=== PATIENT | female | born 1935 | race Caucasian/White ===

== ENCOUNTER 2017-03-06 21:29 | Emergency (ER) | payer MEDICARE ==
[~2017-03-06] VITALS: Ht 162.6 cm; Wt 80.0 kg
[~2017-03-06 21:29] MED LIST: ASPI81TA82 PO; ATOR10 PO; COZA100T PO; LACT PO; OMEP20CA5 PO
[2017-03-06 21:32] VITALS: BP 174/74; PULSE 92; RESP 22; TEMP 99; O2SAT 97
[2017-03-06] MEDS ORDERED: LISI10TA3 PO (21:39)
[2017-03-06] MEDS ORDERED: ATOR10TA15 PO (21:39)
[2017-03-06] MEDS ORDERED: OMEP20TA93 PO (21:39)
[2017-03-06] MEDS ORDERED: BETH10TA2 PO (21:39)
--- NOTE | 2017-03-06 21:55 | PD ---
HPI Chief Complaint: Respiratory Symptoms Time Seen by Provider: 21:45 Travel History International Travel<30 days: Yes Contact w/Intl Traveler<30days: Yes Name of Country Traveled to: [place] Traveled to known affect area: No History of Present Illness HPI Patient is a 81-year-old female who just got off of a two-week cruise , she was treated for diarrhea . she reports there was blood in the diarrhea . now she is here complaining of respiratory cough shortness of breath wheezing . She just got off the cruise this day . She took mucinex but it did not relieve her symptoms. Pt Comes to [place] with all her papers from cruise. Pt also reports edema in her ankles bilateral , SHe reports she takes lasix intermittently especially when she goes on cruises. Pt is in no apparent pain nor resp distress. PFSH Past Medical History Blood Disorders: No Cancer: No Cardiovascular Problems: Yes (HYPERCHOLESTEROLEMIA) High Cholesterol: Yes Diabetes: No Diminished Hearing: No Endocrine: No Gastrointestinal Disorders: Yes (GERD) Glaucoma: No Genitourinary: No Hepatitis: No Hiatal Hernia: Yes Hypertension: Yes Immune Disorder: No Implanted Vascular Access Dvce: Yes Medical other: No Musculoskeletal: No Neurologic: No Psychiatric: No Reproductive: No Respiratory: No Thyroid Disease: No PNEUMOCCOCAL Vaccine (Year): 2002 Menopausal: Yes Past Surgical History Abdominal Surgery: Yes (APPENDECTOMY (CHILDHOOD), HYATIAL HERNIA REPAIR) Appendectomy: Yes Body Medical Devices: PLATE IN LEFT LEG FROM FEMUR REPAIR Oral Surgery: Yes (T&A (CHILDHOOD)) Pacemaker: No Tonsillectomy: Yes Other Surgery: Yes Social History Alcohol Use: Yes (OCCASIONAL) Tobacco Use: No Substance Use: No Allergies-Medications (Allergen,Severity, Reaction): Coded Allergies: acetaminophen (Unverified Allergy, Mild, 03/06/17) hydrocodone (Unverified Allergy, Mild, 03/06/17) Reported Meds & Prescriptions Reported Meds & Active Scripts Active Azithromycin 250 Mg Tab 250 Mg PO DIRECTED Take 2 tabs (500 mg) on day 1 then 1 tab daily x 4 days. Atrovent HFA 12.9 GM Inh (Ipratropium [place]) 17 Mcg/Actuation Aer 2 Puff INH Q6HR PRN Reported Omeprazole 20 Mg Tab 20 Mg PO DAILY Atorvastatin (Atorvastatin Calcium) 10 Mg Tab 10 Mg PO HS Bethanechol 10 Mg Tab 10 Mg PO Q8HR Lisinopril 10 Mg Tab 10 Mg PO DAILY Review of Systems Except as stated in HPI: all other systems reviewed are Neg General / Constitutional: Positive: Fever HENT: Positive: Sore Throat Cardiovascular: No: Chest Pain or Discomfort Respiratory: Positive: Cough, Shortness of Breath Gastrointestinal: Positive: Diarrhea, Abdominal Pain Physical Exam Narrative GENERAL: non toxic wake alert no resp distress no apparent pain SKIN: Warm and dry. HEAD: Atraumatic. Normocephalic. EYES: Pupils equal and round. No scleral icterus. No injection or drainage. ENT: No nasal bleeding or discharge. Mucous membranes pink and moist. NECK: Trachea midline. No JVD. CARDIOVASCULAR: Regular rate and rhythm. RESPIRATORY: No accessory muscle usage no distress minimal expiratory wheeze upper airways bilaterally GASTROINTESTINAL: Abdomen soft, non-tender, nondistended. Hepatic and splenic margins not palpable. MUSCULOSKELETAL: Extremities slight ankle edema non pitting bilateral . No obvious deformities. NEUROLOGICAL: Awake and alert. No obvious cranial nerve deficits. Motor grossly within normal limits. Five out of 5 muscle strength in the arms and legs. Normal speech. PSYCHIATRIC: Appropriate mood and affect; insight and judgment normal. Data Data Last Documented VS Vital Signs Date Time Temp Pulse Resp B/P (MAP) Pulse Ox O2 Delivery O2 Flow Rate FiO2 03/06/17 21:32 99.0 92 22 174/74 (107) 97 Orders Orders Complete Blood Count With Diff (03/06/17 21:55) Comprehensive Metabolic Panel (03/06/17 21:55) Troponin I (03/06/17 21:55) Lipase (03/06/17 21:55) Chest, Pa & Lat (03/06/17 21:55) Influenzae A/B Antigen (03/06/17 21:56) Group A Rapid Strep Screen (03/06/17 21:56) Ipratropium Neb (Atrovent Neb) (03/06/17 22:15) Strep Culture (Group A) (03/06/17 21:59) Ed Discharge Order (03/07/17 00:27) Labs Laboratory Tests Test 03/06/17 21:59 White Blood Count 15.9 TH/MM3 Red Blood Count 3.58 MIL/MM3 Hemoglobin 10.4 GM/DL Hematocrit 30.8 % Mean Corpuscular Volume 86.1 FL Mean Corpuscular Hemoglobin 29.2 PG Mean Corpuscular Hemoglobin Concent 33.9 % Red Cell Distribution Width 14.1 % Platelet Count 363 TH/MM3 Mean Platelet Volume 8.8 FL Neutrophils (%) (Auto) 85.4 % Lymphocytes (%) (Auto) 5.4 % Monocytes (%) (Auto) 7.8 % Eosinophils (%) (Auto) 1.0 % Basophils (%) (Auto) 0.4 % Neutrophils # (Auto) 13.6 TH/MM3 Lymphocytes # (Auto) 0.9 TH/MM3 Monocytes # (Auto) 1.2 TH/MM3 Eosinophils # (Auto) 0.2 TH/MM3 Basophils # (Auto) 0.1 TH/MM3 CBC Comment DIFF FINAL Differential Comment Blood Urea Nitrogen 9 MG/DL Creatinine 0.90 MG/DL Random Glucose 125 MG/DL Total Protein 6.3 GM/DL Albumin 2.1 GM/DL Calcium Level 8.1 MG/DL Alkaline Phosphatase 146 U/L Aspartate Amino Transf (AST/SGOT) 31 U/L Alanine Aminotransferase (ALT/SGPT) 38 U/L Total Bilirubin 0.4 MG/DL Sodium Level 139 MEQ/L Potassium Level 3.5 MEQ/L Chloride Level 104 MEQ/L Carbon Dioxide Level 24.4 MEQ/L Anion Gap 11 MEQ/L Estimat Glomerular Filtration Rate 60 ML/MIN Troponin I LESS THAN 0.02 NG/ML Lipase 51 U/L MDM Medical Decision Making Medical Screen Exam Complete: Yes Emergency Medical Condition: Yes Differential Diagnosis DDx bronchitis viral vs PNA vs FLU vs strep vs bacterial infection water source from ship , Narrative Course CXR reviewed normal Dx bronchitis viral and Sypmtomatic treatment of her wheeze and Atrovent neb made her feel much better , will Rx atrovent HFA and Zpak for bronchitis and d/c to follow up as out Diagnosis Primary Impression: SOB (shortness of breath) Scripts Azithromycin (Azithromycin) 250 Mg Tab 250 MG PO DIRECTED for Infection, #6 TAB 0 Refills Take 2 tabs (500 mg) on day 1 then 1 tab daily x 4 days. Prov: Srikanth Powell MD 03/07/17 Ipratropium HFA 12.9 GM Inh (Atrovent HFA 12.9 GM Inh) 17 Mcg/Actuation Aer 2 PUFF INH Q6HR Y for SHORTNESS OF BREATH, #1 INHALER 0 Refills Prov: Srikanth Powell MD 03/07/17 Disposition: 01 DISCHARGE HOME Condition: Good Srikanth Powell MD Mar 06, 2017 21:55
[2017-03-06] MEDS ORDERED: RESP: IPRATROPIUM 0.5 MG/2.5 ML NEB NEB ONE (22:15)
[2017-03-06 22:29] LABS: AUTOMATED NEUTROPHIL # 13.6 TH/MM3 (1.8-7.7); BASOPHIL # 0.1 TH/MM3 (0-0.2); BASOPHIL % 0.4 % (0.0-2.0); EOSINOPHIL # 0.2 TH/MM3 (0-0.4); HEMATOCRIT 30.8 % (35.0-46.0); HEMOGLOBIN 10.4 GM/DL (11.6-15.3); LYMPH % 5.4 % (9.0-44.0); LYMPHOCYTE # 0.9 TH/MM3 (1.0-4.8); MEAN CELL VOLUME 86.1 FL (80.0-100.0); MEAN CORPUSCULAR HEMOGLOBIN 29.2 PG (27.0-34.0); MEAN CORPUSCULAR HGB CONC 33.9 % (32.0-36.0); MEAN PLATELET VOLUME 8.8 FL (7.0-11.0); MONO % 7.8 % (0.0-8.0); MONOCYTE # 1.2 TH/MM3 (0-0.9); NEUT % 85.4 % (16.0-70.0); PLATELET COUNT 363 TH/MM3 (150-450); RED BLOOD COUNT 3.58 MIL/MM3 (4.00-5.30); RED CELL DISTRIBUTION WIDTH 14.1 % (11.6-17.2); WHITE BLOOD COUNT 15.9 TH/MM3 (4.0-11.0)
--- NOTE | 2017-03-06 22:32 | RADRPT ---
EXAM DATE/TIME: 03/06/2017 22:09 [place] COMPARISON: No previous studies available for comparison. INDICATIONS : Patient complains of cough, congestion, shortness of breath, and fever. MEDICAL HISTORY : None. SURGICAL HISTORY : None. ENCOUNTER: Initial ACUITY: 1 week PAIN SCORE: 0/10 LOCATION: chest FINDINGS: PA and lateral views of the chest demonstrate elevated left hemidiaphragm. Small pleural effusions, l eft greater than right. Mild basilar atelectasis. No pneumothorax. Mild kyphosis. CONCLUSION: 1. Elevated left hemidiaphragm. Small pleural effusions, left greater than right. Kyphosis. Frantz Amaya MD on March 06, 2017 at 22:29 Board Certified Radiologist. This report was verified electronically.
[2017-03-06 23:06] LABS: ALBUMIN 2.1 GM/DL (3.4-5.0); AST (GOT) 31 U/L (15-37); BICARBONATE 24.4 MEQ/L (21.0-32.0); BLOOD UREA NITROGEN 9 MG/DL (7-18); CALCIUM 8.1 MG/DL (8.5-10.1); CHLORIDE 104 MEQ/L (98-107); GLOMERULAR FILTRATION RATE 60 ML/MIN (>89); GLUCOSE,RANDOM 125 MG/DL (74-106); LIPASE 51 U/L (73-393); SODIUM (NA) 139 MEQ/L (136-145)
[2017-03-06 23:07] LABS: ALT (GPT) 38 U/L (10-53)
[2017-03-06 23:11] LABS: ALKALINE PHOSPHATASE 146 U/L (45-117); TOTAL BILIRUBIN ADULT 0.4 MG/DL (0.2-1.0); TOTAL PROTEIN 6.3 GM/DL (6.4-8.2); TROPONIN I LESS THAN 0.02 NG/ML (0.02-0.05)
[2017-03-07] MEDS ORDERED: AZIT250T3 PO (00:41)
[2017-03-07] MEDS ORDERED: IPRA17I INH (00:41)
== END 2017-03-07 01:19 | disposition home or self-care (01) ==
LOC: NEPE 21:29
DX: R06.02 Shortness of breath (principal); R50.9 Fever, unspecified; J02.9 Acute pharyngitis, unspecified; R05 Cough; R19.7 Diarrhea, unspecified; J90 Pleural effusion, not elsewhere classified; M40.209 Unspecified kyphosis, site unspecified; K21.9 Gastro-esophageal reflux disease without esophagitis; I10 Essential (primary) hypertension
CPT/HCPCS: 71046; 80053; 83690; 84484; 85025; 87081; 87804; 87880; 94664; 99284; J7644